=== PATIENT | male | born 1970 | race African-American/Black ===

== ENCOUNTER 2017-09-20 20:36 | Emergency (ER) | payer OTHER ==
[~2017-09-20] VITALS: Ht 175.3 cm; Wt 78.0 kg
[~2017-09-20 20:36] MED LIST: BENADRYL25 MG ORAL; BENZTROPINE ME0.5 MG PO; BUPROPION XL300 MG ORAL; EFFEXOR XR150 MG ORAL; HALOPERIDOL0.5 MG ORAL; QUETIAPINE FUMA25 MG ORAL
[2017-09-20 20:40] VITALS: BP 110/81
--- NOTE | 2017-09-20 22:24 | Emergency Room Report ---
History of Present Illness General Chief Complaint: Allergic Reaction Source: Patient, Medical Record Present Illness HPI Is a 46-year-old male with a history. He is taking Seroquel. He said he was up his dosage of Seroquel from 200 mg to 800 mg today. He came in with chief complaint of allergic reaction. He said he felt his mouth being dry and sticky. Had a hard time swallowing. Denies any rash. Denies any fever or chills. Denies any other complaint. Allergies: Coded Allergies: No Known Allergies (Unverified , 09/20/17) Patient History Past Medical History: see triage record, old chart reviewed, psych hx Past Surgical History: other Pertinent Family History: none Social History: Denies: drug use Immunizations: other Reviewed Nursing Documentation: PMH: Agreed, PSxH: Agreed Nursing Documentation-PMH Hx Hypertension: Yes Hx Asthma: Yes Hx Seizures: Yes Review of Systems Eye: Denies: eye pain, blurred vision ENT: Denies: ear pain, nose congestion, throat swelling Respiratory: Denies: cough, shortness of breath Cardiovascular: Denies: chest pain, palpitations Gastrointestinal: Denies: abdominal pain, diarrhea, nausea, vomiting Musculoskeletal: Denies: back pain, joint pain Skin: Denies: rash Neurological: Denies: headache, numbness Endocrine: Denies: increased thirst, increased urine Hematologic/Lymphatic: Denies: easy bruising All Other Systems: negative except mentioned in HPI Physical Exam Vital Signs Date Time Temp Pulse Resp B/P (MAP) Pulse Ox O2 Delivery O2 Flow Rate FiO2 09/20/17 20:22 98.5 118 18 110/81 100 Room Air 98.4 vitals normal except for tachycardia Sp02 EP Interpretation: reviewed, normal General Appearance: well appearing, no apparent distress, alert Head: normocephalic, atraumatic Eyes: bilateral eye PERRL, bilateral eye EOMI ENT: hearing grossly normal, normal pharynx Neck: full range of motion, supple, no meningismus Respiratory: chest non-tender, lungs clear, normal breath sounds Cardiovascular #1: regular rate, rhythm, no murmur Gastrointestinal: normal bowel sounds, non tender, no mass, no organomegaly, no bruit, non-distended Musculoskeletal: back normal, gait/station normal, normal range of motion Psychiatric: mood/affect normal Skin: warm/dry Medical Decision Making Diagnostic Impression: Primary Impression: Adverse effects of medication Qualified Codes: T88.7XXA - Unspecified adverse effect of drug or medicament, initial encounter ER Course Patient presents with an adverse effect of his Seroquel. I suspect that the dosage was too strong for him. I told him to check to make sure it is 800 mg and not 300. No evidence of allergic reaction. No evidence of overdose purposefully. Criteria for 5150. He felt better now. We'll discharge activity boarding care. Last Vital Signs Date Time Temp Pulse Resp B/P (MAP) Pulse Ox O2 Delivery O2 Flow Rate FiO2 09/20/17 20:22 98.5 118 18 110/81 100 Room Air 98.4 Status: improved Disposition: HOME, SELF-CARE Condition: Stable Additional Instructions: Check your dosage of Seroquel to make sure it is 800 mg. Call the psychiatrist to confirm the dosage. Return if symptom worsen. HARPREET ROMERO M.D. Sep 20, 2017 22:24
[2017-09-20 22:50] VITALS: BP 121/74
== END 2017-09-20 22:50 | disposition home or self-care (01) ==
LOC: EDBD 20:36 → EMR 22:15
DX: T88.7XXA Unspecified adverse effect of drug or medicament, initial encounter (principal); X58.XXXA Exposure to other specified factors, initial encounter; Y93.9 Activity, unspecified; Y92.9 Unspecified place or not applicable; I10 Essential (primary) hypertension; R00.0 Tachycardia, unspecified
CPT/HCPCS: 99282

== ENCOUNTER 2018-04-30 21:26 | Emergency (ER) | payer MEDICAID, OTHER ==
[~2018-04-30] VITALS: Ht 175.3 cm; Wt 93.0 kg
[2018-04-30 21:49] VITALS: BP 127/89
--- NOTE | 2018-04-30 21:54 | Emergency Room Report ---
History of Present Illness General Chief Complaint: Headache Source: Patient, Medical Record Present Illness HPI Patient presents with reports of headache Body ache Symptoms ongoing for the past 7 days patient feels a pressure-like sensation to the forehead and maxillary area Denies any focal weakness denies any neuropathy Denies any cough Denies any sore throat Denies any recent trauma Denies any photophobia Allergies: Coded Allergies: No Known Allergies (Unverified , 04/30/18) Patient History Past Medical History: see triage record Pertinent Family History: none Reviewed Nursing Documentation: PMH: Agreed; PSxH: Agreed Nursing Documentation-PMH Past Medical History: No History, Except For Hx Hypertension: Yes Hx Asthma: Yes Hx Seizures: No Review of Systems All Other Systems: negative except mentioned in HPI Physical Exam Vital Signs Date Time Temp Pulse Resp B/P (MAP) Pulse Ox O2 Delivery O2 Flow Rate FiO2 04/30/18 21:33 98.2 82 15 127/89 96 Room Air Sp02 EP Interpretation: reviewed, normal General Appearance: well appearing, no apparent distress Head: normocephalic, atraumatic Eyes: bilateral eye PERRL, bilateral eye EOMI ENT: hearing grossly normal, normal pharynx Neck: supple, no meningismus, no bony tend Respiratory: lungs clear Cardiovascular #1: regular rate, rhythm Gastrointestinal: non tender, soft Musculoskeletal: normal inspection Neurologic: alert, oriented x3, responsive Skin: normal color, no rash Lymphatic: no adenopathy Medical Decision Making Diagnostic Impression: Primary Impression: Headache ER Course Multiple differentials considered including but not limited to, neurological, neurosurgical, infectious such as meningitis Patient has a benign neurological exam Neck is soft patient does not appear septic Consideration for meningitis is low CT head was negative Blood work reveals white blood cell count at 13 which is minimally elevated Kidney function however is also elevated Patient reports that he is aware of his kidney function and is seeing a specialist on Friday Denies any photophobia Remains appropriate and significantly improved with acute intervention Patient further hydrated and stable for close outpatient follow-up Labs Test 04/30/18 22:00 White Blood Count 13.0 K/UL (4.8-10.8) Red Blood Count 5.52 M/UL (4.70-6.10) Hemoglobin 17.3 G/DL (14.2-18.0) Hematocrit 49.0 % (42.0-52.0) Mean Corpuscular Volume 89 FL (80-99) Mean Corpuscular Hemoglobin 31.3 PG (27.0-31.0) Mean Corpuscular Hemoglobin Concent 35.3 G/DL (32.0-36.0) Red Cell Distribution Width 11.7 % (11.6-14.8) Platelet Count 427 K/UL (150-450) Mean Platelet Volume 5.8 FL (6.5-10.1) Neutrophils (%) (Auto) 53.7 % (45.0-75.0) Lymphocytes (%) (Auto) 39.4 % (20.0-45.0) Monocytes (%) (Auto) 3.2 % (1.0-10.0) Eosinophils (%) (Auto) 1.1 % (0.0-3.0) Basophils (%) (Auto) 2.5 % (0.0-2.0) Sodium Level 138 MMOL/L (136-145) Potassium Level 2.7 MMOL/L (3.5-5.1) Chloride Level 98 MMOL/L (98-107) Carbon Dioxide Level 29 MMOL/L (21-32) Anion Gap 10 mmol/L (5-15) Blood Urea Nitrogen 20 mg/dL (7-18) Creatinine 2.1 MG/DL (0.55-1.30) Estimat Glomerular Filtration Rate 41.2 mL/min (>60) Glucose Level 87 MG/DL (74-106) Calcium Level 9.5 MG/DL (8.5-10.1) Rhythm Strip Diag. Results EP Interpretation: yes Rate: 77 Rhythm: NSR, no PVC's, no ectopy CT/MRI/US Diagnostic Results CT/MRI/US Diagnostic Results : Impression CT head no acute disease Last Vital Signs Date Time Temp Pulse Resp B/P (MAP) Pulse Ox O2 Delivery O2 Flow Rate FiO2 04/30/18 21:49 98.2 15 127/89 96 Room Air 04/30/18 21:33 82 Status: improved Disposition: HOME, SELF-CARE Condition: Improved Scripts Acetaminophen (Tylenol) 325 Mg Tablet 650 MG ORAL Q8HR PRN for Prn Pain/Headache/Temp > 101, #20 TAB 0 Refills Prov: LuisgaryTheron wells DO 04/30/18 Amoxicillin* (AMOXIL*) 500 Mg Capsule 500 MG ORAL THREE TIMES A DAY, #21 CAP Prov: Theron Harris DO 04/30/18 Additional Instructions: Patient is provided with the discharge instructions notified to follow up with primary doctor in the next 2-3 days otherwise return to the er with any worsening symptoms.Such as fever or worsening pain Please note that this report is being documented using DRAGON technology. This can lead to erroneous entry secondary to incorrect interpretation by the dictating instrument. Theron Harris DO Apr 30, 2018 21:54
[2018-04-30] MEDS ORDERED: DiphenhydrAMINE 50mg/ml Inj IVP ONE (22:00)
[2018-04-30] MEDS ORDERED: Ketorolac 30mg Inj IV ONE (22:00)
[2018-04-30] MEDS ORDERED: Sodium Chloride 500ML 500 ML IV ONE (22:00)
[2018-04-30] MEDS ORDERED: Metoclopramide 10mg/2ml Inj IVP ONE (22:00)
[2018-04-30 22:04] VITALS: BP 132/76
[2018-04-30 22:14] LABS: BASOPHILS % (AUTO) 2.5 % (0.0-2.0); EOSINOPHILS % (AUTO) 1.1 % (0.0-3.0); HEMOGLOBIN 17.3 G/DL (14.2-18.0); LYMPHOCYTES % (AUTO) 39.4 % (20.0-45.0); MEAN CORPUSCULAR VOLUME 89 FL (80-99); MONOCYTES % (AUTO) 3.2 % (1.0-10.0); NEUTROPHILS % (AUTO) 53.7 % (45.0-75.0); PLATELET COUNT 427 K/UL (150-450); RED BLOOD COUNT 5.52 M/UL (4.70-6.10); RED CELL DISTRIBUTION WIDTH 11.7 % (11.6-14.8)
[2018-04-30 22:20] LABS: ANION GAP 10 mmol/L (5-15); BLOOD UREA NITROGEN 20 mg/dL (7-18); CALCIUM 9.5 MG/DL (8.5-10.1); CARBON DIOXIDE 29 MMOL/L (21-32); CHLORIDE 98 MMOL/L (98-107); CREATININE 2.1 MG/DL (0.55-1.30); SODIUM 138 MMOL/L (136-145)
[2018-04-30 22:21] LABS: POTASSIUM 2.7 MMOL/L (3.5-5.1)
[2018-04-30] MEDS ORDERED: AMOXICILLIN500 MG ORAL (23:44)
[2018-04-30] MEDS ORDERED: TYLENOL325 MG ORAL (23:44)
--- NOTE | 2018-05-01 09:19 | Diagnostic Imaging Report ---
Indications: Headache and bodyaches for past 7 days Technique: Spiral acquisitions obtained through the brain. Angled axial and coronal 5 x 5 mm slices were reconstructed. Total dose length product 1432.39 mGycm. CTDI vol(s) 70.38 mGy. Dose reduction achieved using automated exposure control Comparison: None. Findings: No acute intracranial hemorrhage or edema, mass effect, nor midline shift. Normal lagos-white differentiation. Some increased attenuation in the left parietal scalp may be due to scarring or small hematoma. Visualized orbits and sinuses are unremarkable. The mastoids are clear. The calvarium is intact Impression: Negative for acute intracranial bleed or mass effect This agrees with the preliminary interpretation provided overnight by [facility]. The CT scanner at [facility] is accredited by the [employer] and the scans are performed using protocols designed to limit radiation exposure to as low as reasonably achievable to attain images of sufficient resolution adequate for diagnostic evaluation.
== END 2018-05-01 | disposition home or self-care (01) ==
LOC: EMR 21:48
DX: R51 Headache (principal); I10 Essential (primary) hypertension; J45.909 Unspecified asthma, uncomplicated
CPT/HCPCS: 36415; 70450; 80048; 85025; 96361; 96374; 96375; 99284; J1200; J1885; J2765; J7040; J8499

== ENCOUNTER 2018-07-15 11:59 | Emergency (ER) | payer MEDICAID ==
[~2018-07-15] VITALS: Ht 175.3 cm; Wt 80.3 kg
[~2018-07-15 11:59] MED LIST changes: +AMOXICILLIN500 MG ORAL; +TYLENOL325 MG ORAL
[2018-07-15] MEDS ORDERED: ZYPREXA10 MG ORAL (12:07)
[2018-07-15] MEDS ORDERED: WELLBUTRIN SR150 M1 PO (12:07)
--- NOTE | 2018-07-15 12:11 | NUR ---
ED Nurse Note: Pt came in due to gout flair up that started last night. Pt is complaining of 10/10 left knee and left toes pain. Skin warm to touch. Redness noted on the left knee and left toes. Left toes noted to be swollen as well. A + O x4.
[2018-07-15 12:12] VITALS: BP 135/95
--- NOTE | 2018-07-15 12:21 | Emergency Room Report ---
History of Present Illness General Chief Complaint: Pain Source: Patient Present Illness HPI 47-year-old male patient presents the ER complaining of gout. Reports symptoms began last night. Reports history of gout 1 year ago. States has not been taking any Medication since that time. Reports he was hospitalized at that time for gout symptoms. Denies acute injury or trauma. Reports pain in his left knee and left foot. Denies fever, chest pain, shortness of breath, vomiting. Denies other acute symptoms. Denies other aggravating or relieving factors. Patient reports that he thinks he broke his toe 2 months ago when he injured it. States that he was not able to see a provider at that time because he lives in housing for pupils that were recently released from snf, states he was not given permission to leave to have it x-rayed at that time. Reports pain with ambulation. Allergies: Coded Allergies: No Known Allergies (Unverified , 04/30/18) Patient History Past Medical History: see triage record Reviewed Nursing Documentation: PMH: Agreed; PSxH: Agreed Nursing Documentation-PMH Past Medical History: No History, Except For Hx Hypertension: Yes Hx Asthma: Yes Hx Seizures: No Review of Systems All Other Systems: negative except mentioned in HPI Physical Exam Vital Signs Date Time Temp Pulse Resp B/P (MAP) Pulse Ox O2 Delivery O2 Flow Rate FiO2 07/15/18 12:01 98.1 96 18 139/90 97 Room Air Sp02 EP Interpretation: reviewed, normal General Appearance: well appearing, no apparent distress, alert, GCS 15, non- toxic Head: normocephalic, atraumatic Eyes: bilateral eye normal inspection, bilateral eye PERRL ENT: hearing grossly normal, normal pharynx, no angioedema, normal voice, uvula midline, moist mucus membranes Neck: full range of motion Respiratory: lungs clear, normal breath sounds, no rhonchi, no respiratory distress, no accessory muscle use, no wheezing, speaking full sentences Cardiovascular #1: regular rate, rhythm, no edema Cardiovascular #2: 2+ dorsalis pedis (R), 2+ dorsalis pedis (L) Musculoskeletal: back normal, digits/nails normal, gait/station normal, normal range of motion, swelling - Mild over knee, other, tender - Anterior left knee, dorsum and plantar aspect of left foot Neurologic: alert, oriented x3, responsive, motor strength/tone normal, sensory intact Skin: no rash Medical Decision Making PA Attestation Dr. Omalley is my supervising Physician whom patient management has been discussed with. Diagnostic Impression: Primary Impression: Gout attack Additional Impression: Creatinine elevation ER Course Pt. presents to the ED c/o gout attack. Ddx considered but are not limited to gout, fracture, sprain, strain, contusion , cellulitis, DVT, septic joint. No effusion, no warmth to touch, no fever, afebrile, nontoxic appearing, low suspicion for septic joint. Ordered labs to evaluate for gout. Vital signs: are WNL, pt. is afebrile ER COURSE: Provided patient indomethacin and colchicine. An X-ray of the left knee shows results show no acute disease, per the official radiology report. An x-ray of the left foot shows no acute disease per the preliminary reading. Old fracture of third digit noted of middle phalanx. WILBERT wrap applied to affected joint and checked afterwards me showing good alignment and NV function intact. CBC shows mild elevation in WBCs, no left shift CMP shows creatinine levels improved from previous visit, however due to patient report of hx of kidney disease, will not discharge home with indomethacin and colchicine. Will discharge home with prednisone and and Tylenol for pain symptoms. Uric acid elevated ESR elevated, nonspecific Likely acute gout attack. Followup with PCP and discuss further treatment and referral. Patient reports symptoms improved while in the ER. OK for discharge to home for outpatient treatment. DISCHARGE: -Rx provided for Tylenol for pain symptoms. -Rx provided for Prednisone. At this time pt. is stable for d/c to home. Patient resting comfortably, nontoxic appearing, talking without difficulty. Will provide printed patient care instructions, and any necessary prescriptions. Patient instructed to follow with primary care provider in 3 - 5 days and to discuss further gout and foot pain treatment. Care plan and follow up instructions have been discussed with the patient prior to discharge. Take medications as directed. Patient questions asked and answered. ER precautions given, patient instructed to return to ER immediately for any new or worsening of symptoms. -Please note this Emergency Department Report was dictated using [employer] technology software, occasionally this can lead to erroneous entry secondary to interpretation by the dictation equipment. Labs Test 07/15/18 12:31 White Blood Count 13.2 K/UL (4.8-10.8) Red Blood Count 5.34 M/UL (4.70-6.10) Hemoglobin 16.9 G/DL (14.2-18.0) Hematocrit 49.0 % (42.0-52.0) Mean Corpuscular Volume 92 FL (80-99) Mean Corpuscular Hemoglobin 31.6 PG (27.0-31.0) Mean Corpuscular Hemoglobin Concent 34.4 G/DL (32.0-36.0) Red Cell Distribution Width 12.9 % (11.6-14.8) Platelet Count 389 K/UL (150-450) Mean Platelet Volume 6.1 FL (6.5-10.1) Neutrophils (%) (Auto) 66.2 % (45.0-75.0) Lymphocytes (%) (Auto) 24.5 % (20.0-45.0) Monocytes (%) (Auto) 7.6 % (1.0-10.0) Eosinophils (%) (Auto) 0.3 % (0.0-3.0) Basophils (%) (Auto) 1.4 % (0.0-2.0) Erythrocyte Sedimentation Rate 35 MM/HR (0-15) Sodium Level 135 MMOL/L (136-145) Potassium Level 3.6 MMOL/L (3.5-5.1) Chloride Level 96 MMOL/L (98-107) Carbon Dioxide Level 25 MMOL/L (21-32) Anion Gap 15 mmol/L (5-15) Blood Urea Nitrogen 15 mg/dL (7-18) Creatinine 1.7 MG/DL (0.55-1.30) Estimat Glomerular Filtration Rate 52.6 mL/min (>60) Glucose Level 90 MG/DL (74-106) Uric Acid 12.8 MG/DL (2.6-7.2) Calcium Level 9.4 MG/DL (8.5-10.1) Other X-Ray Diagnostic Results Other X-Ray Diagnostic Results #1: X-Ray ordered: Left foot # of Views/Limited Vs Complete: 3 View Indication: Pain EP Interpretation: Yes PA Xray: Interpretation reviewed, by supervising MD, and agrees with findings. Interpretation: no dislocation, no soft tissue swelling, no fractures, other - Old third digit middle phalanx fracture Impression: No acute disease GEORGE ScribHarry Hutchinson PA-C Other X-Ray Diagnostic Results #2: X-Ray ordered: Left knee # of Views/Limited Vs Complete: 3 View Indication: Pain EP Interpretation: Yes PA Xray: Interpretation reviewed, by supervising MD, and agrees with findings. Interpretation: no dislocation, no soft tissue swelling, no fractures, other - Old tib/fib fracture Impression: No acute disease GEORGE Scribe Text Efraín Hutchinson PA-C Last Vital Signs Date Time Temp Pulse Resp B/P (MAP) Pulse Ox O2 Delivery O2 Flow Rate FiO2 07/15/18 12:12 98.1 75 20 135/95 98 Room Air Status: improved Disposition: HOME, SELF-CARE Condition: Stable Scripts Prednisone* (PREDNISONE*) 20 Mg Tablet 20 MG ORAL DAILY for 5 Days, #5 TAB 0 Refills Prov: Jeferson Hutchinson 07/15/18 Acetaminophen* (TYLENOL EXTRA STRENGTH*) 500 Mg Tablet 500 MG ORAL Q8H PRN for Prn Headache/Temp > 101, #30 TAB 0 Refills Prov: Jeferson Hutchinson 07/15/18 Patient Instructions: Chronic Kidney Disease, [id number], Gout, [id number] Additional Instructions: Patient instructed to follow up with primary care provider and discuss further referral to rheumatology/renal specialist. If unable to followup with PCP, followup with orthopedic urgent care in 5-7 days , call to schedule appointment. Advised on gout friendly diet. Patient instructed on RICE method: rest, ice, compression, elevation. Patient instructed to WBAT. Take medications as directed. Patient questions asked and answered. ER precautions given, patient instructed to return to ER immediately for any new or worsening of symptoms. Jeferson Hutchinson Jul 15, 2018 12:21
[2018-07-15] MEDS ORDERED: Indomethacin 25mg cap ORAL ONE (12:30)
--- NOTE | 2018-07-15 12:52 | NUR ---
ED Nurse Note: Xray at the bedside.
[2018-07-15 12:57] LABS: BASOPHILS % (AUTO) 1.4 % (0.0-2.0); EOSINOPHILS % (AUTO) 0.3 % (0.0-3.0); HEMOGLOBIN 16.9 G/DL (14.2-18.0); LYMPHOCYTES % (AUTO) 24.5 % (20.0-45.0); MEAN CORPUSCULAR VOLUME 92 FL (80-99); MONOCYTES % (AUTO) 7.6 % (1.0-10.0); NEUTROPHILS % (AUTO) 66.2 % (45.0-75.0); PLATELET COUNT 389 K/UL (150-450); RED BLOOD COUNT 5.34 M/UL (4.70-6.10); RED CELL DISTRIBUTION WIDTH 12.9 % (11.6-14.8); WHITE BLOOD COUNT 13.2 K/UL (4.8-10.8)
--- NOTE | 2018-07-15 14:03 | NUR ---
ED Nurse Note: Dar wrapped ankled and provided crutches.
--- NOTE | 2018-07-15 14:05 | NUR ---
ED Nurse Note: Lab called to run BMP test.
[2018-07-15 14:15] LABS: ANION GAP 15 mmol/L (5-15); BLOOD UREA NITROGEN 15 mg/dL (7-18); CALCIUM 9.4 MG/DL (8.5-10.1); CARBON DIOXIDE 25 MMOL/L (21-32); CHLORIDE 96 MMOL/L (98-107); CREATININE 1.7 MG/DL (0.55-1.30); POTASSIUM 3.6 MMOL/L (3.5-5.1); SODIUM 135 MMOL/L (136-145)
[2018-07-15] MEDS ORDERED: PREDNISONE20 MG ORAL (14:24)
[2018-07-15] MEDS ORDERED: TYLENOL EXTRA500 MG ORAL (14:24)
[2018-07-15 14:27] VITALS: BP 129/89
[2018-07-15 14:28] VITALS: BP 129/89
--- NOTE | 2018-07-15 14:28 | NUR ---
ED Nurse Note: Pt is clear to be discharged by ERMD. Discharge paper and prescription given, pt verbalized understanding of discharge instruction. Aox4, VSS. Wristband removed. Pt ambulated out with steady gait with crutches with all belongings.
--- NOTE | 2018-07-15 16:04 | Diagnostic Imaging Report ---
Indication: Left knee pain Technique: 3 views of the left knee Comparison: None Findings: Old fracture deformities of the mid shaft tibia and fibula are noted. No acute fractures. No dislocations. No suprapatellar effusion. The joint spaces are preserved.. Dystrophic calcification medial to the medial condyle of the femur may reflect old injury Impression: No acute process
--- NOTE | 2018-07-15 16:22 | Diagnostic Imaging Report ---
Indication: Left foot pain, history of gout Technique: 3 views left foot Comparison: none Findings: There is a transverse fracture of the third middle phalanx. No other acute fractures. No dislocations. No osseous erosions. No soft tissue mass. The joint spaces are preserved. Impression: Positive for third middle phalangeal fracture. Per discussion with referring physician assistant professor sculpture, this is known, 2 months old. 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
== END 2018-07-15 14:28 | disposition home or self-care (01) ==
LOC: EMR 13:21
DX: M10.9 Gout, unspecified (principal); R79.89 Other specified abnormal findings of blood chemistry
CPT/HCPCS: 36415; 80048; 84550; 85025; 85651; 99284